=== PATIENT | female | born 1990 | race Caucasian/White ===

== ENCOUNTER 2023-05-25 23:23 | Emergency (ER) | payer MEDICAID, SELFPAY ==
[2023-05-25 23:25] VITALS: BP 123/81; PULSE 91; RESP 16; TEMP 36.1; BMI 25.5
[2023-05-25 23:29] VITALS: BP 123/81; PULSE 91; RESP 16; TEMP 36.1
--- NOTE | 2023-05-25 23:44 | EX.ED.SAOD ---
HPI History of Present Illness Chief Complaint: Substance Abuse Informant: patient Narrative Narrative: Patient from [place] presenting requesting detox from heroin. She states she has been using it was daily for about a year, she had a couple accidental overdoses within the past couple nights and states enough is enough. She also just found out by 5 positive home tests that she is because she missed her menstrual cycle. Her last 1 was in March at some point, making her anywhere between 5 and 8 weeks along by dates. She denies any abdominal pain, vaginal bleeding or discharge or vomiting. Her last use of heroin was around 24 hours ago, she states she feels poorly. She feels very anxious and shaky. [facility] Medical History (Updated 05/26/23 @ 00:13 by Patti King) Ectopic Endocarditis Hypertension Overdose of fentanyl Medical History no medical history no medical history Home Medications amitriptyline 50 mg tablet 50 mg PO QHS 05/26/23 [History Last Taken Unknown] apixaban 5 mg tablet (Eliquis) 5 mg PO BID #60 tabs 05/26/23 [Rx Last Taken Unknown] aspirin 81 mg chewable tablet 1 tab PO DAILY 05/26/23 [History Last Taken Unknown] buprenorphine 4 mg-naloxone 1 mg sublingual film 1 film buccal Q24H #2 ea 05/26/23 [Rx Last Taken Unknown] gabapentin 400 mg capsule 600 mg PO TID 05/26/23 [History Last Taken Unknown] melatonin 5 mg tablet 5 mg PO QHS 05/26/23 [History Last Taken Unknown] Allergy/AdvReac Type Severity Reaction Status Date / Time No Known Allergies Allergy Verified 05/25/23 23:30 Social History (Updated 05/25/23 @ 23:[address] Valente Hernandez MD) Smoking Status: Current every day smoker tobacco type: cigarettes substance use type: heroin and IV drugs ROS ROS ED Constitutional Constitutional ED: Denies chills or fever(s) Eyes Eyes: Denies change in vision or diplopia ENT ENT ED: Denies rhinorrhea or sore throat Cardiovascular Cardiovascular: Denies chest pain or palpitations Respiratory/Chest Respiratory/Chest: Denies cough or dyspnea Gastrointestinal Gastrointestinal: Denies abdominal pain, diarrhea, nausea or vomiting Genitourinary Genitourinary ED: Denies dysuria or hematuria Musculoskeletal Musculoskeletal: Denies back pain or neck pain Integumentary Denies abscess or rash Neurologic Neurologic: Denies headache(s), paresthesias or weakness Psychiatric Psychiatric: Denies anxiety or suicidal thoughts EXAM Physical Exam Const Vital Signs: 05/25/23 23:25 05/25/23 23:29 Temperature 97.0 F L 97.0 F L Temperature Source Temporal Temporal Pulse Rate 91 91 Respiratory Rate 16 16 Blood Pressure 123/81 H 123/81 H Blood Pressure Mean 95 95 Positive well nourished and well developed General Appearance ED: well developed and NAD HEENT Reports moist mucous membranes normocephalic and atraumatic Eyes PERRL and EOMs intact bilaterally Neck full ROM and supple Resp normal respiratory effort and clear to auscultation bilaterally Cardio regular rate, regular rhythm and no murmurs GI non-tender and non-distended Auscultation: normoactive bowel sounds Palpation: soft Back/Spine no CVA tenderness General Back: other FROM Extremity normal to inspection General Extremety ED: Negative for edema, pulses abnormal or tenderness General Extremity: Negative for edema or pulses abnormal Neuro oriented x3, CN's II-XII intact bilaterally and no sensory deficits noted Sensorium / Orientation: awake and alert Motor Exam: strength 5/5 throughout Skin no rashes or lesions noted and no wounds MDM MDM MDM Narrative Medical decision making narrative: Labs noted, urine is positive. Gave the patient tramadol 100 mg for her symptoms. Discussed with hospitalist, we do not admit detox patients here if they are . We kept the patient for several hours, making multiple phone calls from staff looking for a place we could transfer this patient, but it is Sunday night and we were not able to find anyone able to except the patient on the weekend. Most of them patient's Sunday-Sunday. There is a place at [facility] in [place] with [facility], they do not offer their services where the patient lives in [place] are close to there, and they would not accept the patient in transfer, saying that they have to come to the emergency department. Given patient appropriate information, and I am giving her a dose of Suboxone here as well as a prescription for 2 more days which will hopefully get her to there. She is comfortable with that plan and also asking for refill on her Eliquis which apparently she is on because of heart valve issue, she states she has been out of it for couple weeks and needs to be on it. Lab Data Attestation: I reviewed the patient's lab results. Labs: Laboratory Results - last 24 hr 05/26/23 05/26/23 05/26/23 00:02 00:07 00:15 WBC 7.1 RBC 4.05 L Hgb 11.1 L Hct 33.6 L MCV 83.0 MCH 27.4 MCHC 33.0 RDW Std Deviation 46.5 H RDW Coeff of Iam 15.9 H Plt Count 319 MPV 10.6 Immature Gran % (Auto) 0.700 Neut % (Auto) 41.5 L Lymph % (Auto) 42.1 H [place] % (Auto) 8.7 Eos % (Auto) 6.2 H Baso % (Auto) 0.8 Absolute Neuts (auto) 2.9 Absolute Lymphs (auto) 2.99 Nucleated RBC % 0 Sodium 140 Potassium 3.3 L Chloride 108 H Carbon Dioxide 25.0 Anion Gap 7 BUN 13 Creatinine 0.80 Estim Creat Clear Calc 74.77 Est GFR (MDRD) Af Amer 106 Est GFR (MDRD) Non-Af 88 BUN/Creatinine Ratio 16.3 Glucose 117 H Calcium 8.2 L Total Bilirubin 0.20 AST 18 ALT 27 Alkaline Phosphatase 96 Total Protein 6.4 Albumin 3.4 Globulin 3.0 Albumin/Globulin Ratio 1.1 Urine Test Positive H Urine Opiates Screen POSITIVE H Urine Methadone Screen NEGATIVE Ur Barbiturates Screen NEGATIVE Ur Phencyclidine Scrn NEGATIVE Ur Amphetamines Screen POSITIVE H MDMA (Ecstasy) Screen POSITIVE H U Benzodiazepines Scrn NEGATIVE Urine Cocaine Screen POSITIVE H U Cannabinoids Screen POSITIVE H Ur Drug Screen Comment Ethyl Alcohol < 3.0 Discharge Plan Triage Chief Complaint: Substance Abuse ED Provider: Valente Hernandez Dx/Rx/DC Orders Clinical Impression: Opiate dependence, Early stage of Instructions: ED Opioid Withdrawal Prescriptions: New buprenorphine-naloxone 4-1 mg film 1 film buccal Q24H Qty: 2 0RF Rx Instructions: place 1 strip/tab under (each) side of tongue Continued amitriptyline 50 mg tablet 50 mg PO QHS Patient Comments: take 1 tablet by mouth at bedtime gabapentin 400 mg capsule 600 mg PO TID Patient Comments: take 1 capsule by mouth three times a day melatonin 5 mg tablet 5 mg PO QHS Patient Comments: take 1 tablet by mouth at bedtime if needed aspirin 81 mg tablet,chewable 1 tab PO DAILY Patient Comments: chew and swallow 1 tablet by mouth once daily Eliquis 5 mg tablet 5 mg PO BID Qty: 60 0RF Primary Care Provider: MADELIN ROME Referrals: [facility] Doctor,Out of [Non-Staff] - Activity Restrictions/Additional Instructions: There is a program that is appropriate for women at [facility] in [place] if you can make it to their emergency department. They were unable to accept you in transfer. Disposition Disposition: Home, Self Care
[2023-05-26 00:21] LABS: Internal QC Validated? YES +Cl - CLEAR BKGD
[2023-05-26 00:22] LABS: Pregnancy, Urine Positive Negative
[2023-05-26] MEDS: traMADol 50 MG Tablet 100 MG PO (00:25)
[2023-05-26 00:35] LABS: Alcohol, Blood (Medical)-Serum < 3.0 mg/dL
[2023-05-26 00:36] LABS: Absolute Lymphocyte Count 2.99 X10^3/uL (0.83-4.51); Absolute Neutrophil Count 2.9 X10^3/uL (2.0-7.7); Basophil# 0.06 X10^3/uL; Basophil% 0.8 % (0-1); Eosinophil# 0.44 X10^3/uL; Eosinophils% 6.2 % (0-5); Hematocrit 33.6 % (37-47); Hemoglobin 11.1 g/dL (12.0-15.0); Lymphocyte # 2.99 X10^3/ul (0.83-4.51); Lymphocyte % 42.1 % (19-41); Mean Corpuscular Hgb 27.4 pg (27.0-32.0); Mean Platelet Vol. 10.6 fl (6.2-12.0); Monocyte# 0.62 X10^3/uL; Monocyte% 8.7 % (0-10); NRBC Flagged by Analyzer 0 % (0-5); Neutrophil # 2.94 X10^3/uL (2.7-7.7); Neutrophil % 41.5 % (47-70); Platelet Count 319 K/mm3 (150-450); RBC Distribution Width CV 15.9 % (11.6-14.6); RBC Distribution Width SD 46.5 fl (35.1-43.9); Red Blood Count 4.05 M/mm3 (4.2-5.4); White Blood Count 7.1 K/mm3 (4.4-11.0)
[2023-05-26 00:40] LABS: ALB/GLOB Ratio 1.1 RATIO (0.9-2.4); AST(SGOT) 18 U/L (15-37); Alanine Aminotransfer ALT/SGPT 27 U/L (13-56); Albumin, Serum 3.4 g/dL (3.2-5.0); Alkaline Phosphatase 96 U/L (45-117); Anion Gap 7 (5-15); BUN 13 mg/dL (7-18); BUN/Creat Ratio 16.3 RATIO (10-20); Calcium,Total 8.2 mg/dL (8.5-10.1); Chloride 108 mmol/L (98-107); EST Glomerular Filtration Rate 88 mL/min (>60); Est Glom Filt Rate - Afr Amer 106 mL/min (>60); Estimated Creatinine Clearance 74.77 ml/min; Glucose 117 mg/dL (74-106); Potassium 3.3 mmol/L (3.5-5.1); Protein, Total 6.4 g/dL (6.4-8.2); Sodium Level 140 mmol/L (136-145)
[2023-05-26 00:54] LABS: Amphetamine Urine VISTA POSITIVE (<1000 ng/mL); Barbiturate Urine VISTA NEGATIVE (< 200 ng/mL); Benzodiazepine Urine VISTA NEGATIVE (< 200 ng/mL); Cocaine Urine VISTA POSITIVE (< 300 ng/mL); Ecstacy Urine VISTA POSITIVE (< 500 ng/mL); Methadone Urine VISTA NEGATIVE (< 300 ng/mL); PCP Urine VISTA NEGATIVE (< 25 ng/mL); THC Urine VISTA POSITIVE (< 50 ng/mL); Vista UDS pH Range 5
--- NOTE | 2023-05-26 01:30 | ED.RN ---
phone call to 180 patient navigator for assistance with placement. message left to return phone call
--- NOTE | 2023-05-26 02:57 | SUR.HOLD ---
spoke to [facility] they do not do detox spoke to [facility] they do not do detox
[2023-05-26] MEDS: Buprenorphine HCl 2 MG TAB.SUBL 4 MG SL (04:34)
[2023-05-26 04:38] VITALS: BP 126/78; PULSE 70; RESP 16; O2SAT 100
[2023-05-26 04:39] VITALS: PULSE 70; RESP 16
== END 2023-05-26 04:50 | disposition home or self-care (01) ==
PROVIDERS: Emergency Provider Emergency Medicine; Visit Provider Emergency Medicine
DX: O99.321 Drug use complicating pregnancy, first trimester (principal); F11.20 Opioid dependence, uncomplicated; F17.210 Nicotine dependence, cigarettes, uncomplicated; O99.331 Smoking (tobacco) complicating pregnancy, first trimester; Z79.01 Long term (current) use of anticoagulants; Z79.82 Long term (current) use of aspirin; Z79.899 Other long term (current) drug therapy; Z3A.01 Less than 8 weeks gestation of pregnancy
CPT/HCPCS: 36415; 80053; 80307; 81025; 82077; 85025; 99283

== ENCOUNTER 2025-03-14 22:43 | Observation (INO) | payer MEDICAID, SELFPAY ==
[2025-03-14 22:44] VITALS: BP 125/88; PULSE 95; RESP 18; TEMP 36.2; O2SAT 97; BMI 21.7
--- NOTE | 2025-03-14 22:56 | EX.ED.SAOD ---
HPI History of Present Illness Chief Complaint: Substance Abuse Informant: patient Onset/Context/Timing Onset: Today Context: Gradual Onset Timing: Continuous Worsened by: Nothing Relieved by: Nothing Associated Symptoms Associated Symptoms: Positive for palpatations and no; Negative for vomiting*, diarrhea*, fever*, seizure, tremor, suicidal ideation or homicidal ideation Narrative Narrative: Patient presents requesting detox from heroin, fentanyl and opiates. Patient states she normally snorts 3 g/day. Patient states her last use was approximately 5 hours prior to arrival. Patient denies any suicidal homicidal ideations. Patient states she just does not feel well. Patient states she feels like her heart is racing and beating out of her chest. Patient denies any chest pain. Patient denies any nausea, vomiting, or diarrhea. Patient denies any chance of . [facility] Medical History Ectopic Overdose of fentanyl Hypertension Endocarditis Home Medications ?Medication ?Instructions ?Recorded ?Last Taken ?Type amitriptyline 50 mg tablet 50 mg PO QHS 05/26/23 Unknown History apixaban 5 mg tablet (Eliquis) 5 mg PO BID #60 tabs 05/26/23 Unknown Rx aspirin 81 mg chewable tablet 1 tab PO DAILY 05/26/23 Unknown History buprenorphine 4 mg-naloxone 1 mg 1 film buccal Q24H #2 ea 05/26/23 Unknown Rx sublingual film gabapentin 400 mg capsule 600 mg PO TID 05/26/23 Unknown History melatonin 5 mg tablet 5 mg PO QHS 05/26/23 Unknown History Allergy/AdvReac Type Severity Reaction Status Date / Time No Known Allergies Allergy Verified 03/14/25 22:44 Surgical History no surgical history no surgical history Social History Smoking Status: Current every day smoker tobacco type: cigarettes substance use type: heroin and IV drugs ROS ROS ED Constitutional Constitutional ED: Reports chills and subjective; Denies fever(s) Eyes Eyes: Denies blurry vision or change in vision ENT ENT ED: Denies rhinorrhea or sore throat Cardiovascular Cardiovascular: Reports palpitations; Denies chest pain Respiratory/Chest Respiratory/Chest: Denies cough or dyspnea Gastrointestinal Gastrointestinal: Denies nausea or vomiting Genitourinary Genitourinary ED: Denies dysuria or hematuria Musculoskeletal Musculoskeletal: Reports myalgias; Denies back pain or neck pain Integumentary Denies abscess or rash Neurologic Neurologic: Reports headache(s); Denies weakness Allergic/Immunologic Allergic/Immunologic ED: Denies mouth swelling or urticaria EXAM Physical Exam Const Vital Signs: 03/14/25 22:44 Temperature 97.1 F L Temperature Source Temporal Pulse Rate 95 Respiratory Rate 18 Blood Pressure 125/88 H Blood Pressure Mean 100 Pulse Ox 97 Oxygen Delivery Method Room Air Positive well nourished and well developed General Appearance ED: well developed and NAD HEENT Reports moist mucous membranes Neck supple and no JVD Resp normal respiratory effort and clear to auscultation bilaterally Cardio regular rate and regular rhythm GI soft to palpation, non-tender and non-distended Neuro oriented x3, CN's II-XII intact bilaterally and no sensory deficits noted [place] Coma Scale: document GCS findings Spontaneous Obeys Commands Oriented 15 Sensorium / Orientation: alert Motor Exam: strength 5/5 throughout Psych mental status grossly normal Mood & Affect: depressed and tearful MDM MDM MDM Narrative Medical decision making narrative: Medical screening labs will be obtained. CBC will be obtained to assess for leukocytosis and anemia. Basic metabolic profile will be obtained to assess for electrolyte abnormality and renal function. Serum hCG will be obtained to assess for . Serum alcohol level will be obtained to assess for alcohol intoxication. Urine drug screen will be obtained to assess for substance abuse. Lab Data Attestation: I reviewed the patient's lab results. Lab results narrative: CBC was reviewed and was within normal limits. Labs: Laboratory Results - last 24 hr 03/14/25 23:12 WBC 6.9 RBC 4.35 Hgb 13.2 Hct 38.9 MCV 89.4 MCH 30.3 MCHC 33.9 RDW Std Deviation 40.6 RDW Coeff of Iam 12.6 Plt Count 234 MPV 10.7 Immature Gran % (Auto) 0.300 Neut % (Auto) 64.9 Lymph % (Auto) 25.4 [place] % (Auto) 5.7 Eos % (Auto) 2.8 Baso % (Auto) 0.9 Absolute Neuts (auto) 4.5 Absolute Lymphs (auto) 1.74 Nucleated RBC % 0 Management Discussion w/another healthcare provider: Hospitalist (Dr. Quiroz) Treatment and Re-Evaluation Narrative: Case was discussed with the hospitalist for admission. He will admit the patient to his service. Patient understood and was agreeable with plan. All questions were answered. Discharge Plan Triage Chief Complaint: Substance Abuse ED Provider: Eric Jay Dx/Rx/DC Orders Clinical Impression: Opiate withdrawal, Substance abuse, Desire for detoxification Prescriptions: No Action amitriptyline 50 mg tablet 50 mg PO QHS Patient Comments: take 1 tablet by mouth at bedtime gabapentin 400 mg capsule 600 mg PO TID Patient Comments: take 1 capsule by mouth three times a day melatonin 5 mg tablet 5 mg PO QHS Patient Comments: take 1 tablet by mouth at bedtime if needed aspirin 81 mg tablet,chewable 1 tab PO DAILY Patient Comments: chew and swallow 1 tablet by mouth once daily buprenorphine-naloxone 4-1 mg film 1 film buccal Q24H Qty: 2 0RF Rx Instructions: place 1 strip/tab under (each) side of tongue Eliquis 5 mg tablet 5 mg PO BID Qty: 60 0RF Primary Care Provider: MADELIN ROME Referrals: MADELIN ROME [Other] Print Language: Lao Disposition Disposition: Acute Care Hospital [facility]
[2025-03-14 23:20] LABS: Absolute Lymphocyte Count 1.74 X10^3/uL (0.83-4.51); Absolute Neutrophil Count 4.5 X10^3/uL (2.0-7.7); Basophil# 0.06 X10^3/uL; Basophil% 0.9 % (0-1); Eosinophil# 0.19 X10^3/uL; Eosinophils% 2.8 % (0-5); Hematocrit 38.9 % (37-47); Hemoglobin 13.2 g/dL (12.0-15.0); Lymphocyte # 1.74 X10^3/ul (0.83-4.51); Lymphocyte % 25.4 % (19-41); Mean Corp Hgb Conc 33.9 g/dL (32-36); Mean Corpuscular Hgb 30.3 pg (27.0-32.0); Mean Corpuscular Volume 89.4 fL (81-99); Mean Platelet Vol. 10.7 fl (6.2-12.0); Monocyte# 0.39 X10^3/uL; Monocyte% 5.7 % (0-10); NRBC Flagged by Analyzer 0 % (0-5); Neutrophil # 4.46 X10^3/uL (2.7-7.7); Neutrophil % 64.9 % (47-70); Platelet Count 234 K/mm3 (150-450); RBC Distribution Width CV 12.6 % (11.6-14.6); RBC Distribution Width SD 40.6 fl (35.1-43.9); Red Blood Count 4.35 M/mm3 (4.2-5.4); White Blood Count 6.9 K/mm3 (4.4-11.0)
[2025-03-14 23:37] LABS: Anion Gap 11 (5-15); BUN 14 mg/dL (4-19); BUN/Creat Ratio 15.4 RATIO (10-20); Calcium,Total 8.9 mg/dL (7.6-11.0); Carbon Dioxide 23.1 mmol/L (21.0-32.0); Chloride 105 mmol/L (98-108); Creatinine, Serum 0.89 mg/dL (0.70-1.20); EST Glomerular Filtration Rate 86 (>60); Estimated Creatinine Clearance 65.94 ml/min (50-250); Glucose 120 mg/dL (70-99); Potassium 3.6 mmol/L (3.3-5.1); Sodium Level 139 mmol/L (133-145)
--- NOTE | 2025-03-14 23:45 | PCM.HP.STD ---
HPI - General General Date of Admission: 03/14/25 Date of Service: 03/14/25 Chief Complaint: Opioid detoxification HPI Narrative AUSTIN VILLASENOR, is a 35 F with history of polysubstance abuse, nicotine dependence, prior history of endocarditis with pulmonary embolism who presents to the ED with concerns for inpatient opioid detoxification. She has a longstanding history of opioid use [any and all opioids that she can get] mostly snorting but used to use IV drugs about 6 months back when she developed endocarditis. At the time she was also prescribed Eliquis for? Pulmonary embolism but is noncompliant with her medications. Smokes about 2 packs of cigarettes daily and uses marijuana frequently. No alcohol use, takes Xanax if she can. Occasional Percocet use. Not on any medications, has tried de addiction in the past At the time of presentation in the ED blood pressure 125/88, temp 97.1, oxygen saturation 97% WBC 6.9, hemoglobin 13.2, platelet 284, sodium 139, potassium 3.5, chloride 105, BUN 14, creatinine 0.8. [facility] Medical History Ectopic Overdose of fentanyl Hypertension Endocarditis Home Medications ?Medication ?Instructions ?Recorded ?Last Taken ?Type amitriptyline 50 mg tablet 50 mg PO QHS 05/26/23 Unknown History apixaban 5 mg tablet (Eliquis) 5 mg PO BID #60 tabs 05/26/23 Unknown Rx aspirin 81 mg chewable tablet 1 tab PO DAILY 05/26/23 Unknown History buprenorphine 4 mg-naloxone 1 mg 1 film buccal Q24H #2 ea 05/26/23 Unknown Rx sublingual film gabapentin 400 mg capsule 600 mg PO TID 05/26/23 Unknown History melatonin 5 mg tablet 5 mg PO QHS 05/26/23 Unknown History Allergy/AdvReac Type Severity Reaction Status Date / Time No Known Allergies Allergy Verified 03/14/25 22:44 Surgical History no surgical history Social History Smoking Status: Current every day smoker tobacco type: cigarettes substance use type: heroin and IV drugs ROS Review of Systems ROS Unobtainable: Denies due to encephalopathy, due to endotracheal tube, due to mental condition, due to mental status or other Constitutional Constitutional: Reports fatigue and malaise Eyes Eyes: Denies blurry vision, change in eye color, change in vision, discharge from eye(s), double vision, erythema, eye pain, loss of vision or other ENT HEENT: Denies abnormal hearing, dysphagia, ear pain, epistaxis, headache(s), hearing loss, nasal congestion, nasal discharge, post nasal drip, sinus pressure, sore throat or other Cardiovascular Cardiovascular: Denies chest pain, claudication, dyspnea on exertion, edema, lightheadedness, orthopnea, palpitations, paroxysmal nocturnal dyspnea, rapid heart rate, syncope or other Respiratory/Chest Respiratory/Chest: Denies cough, dyspnea, excessive phlegm production, hemoptysis, productive cough, shortness of breath at rest, shortness of breath with exertion, wheezing or other Gastrointestinal Gastrointestinal: Denies abdominal pain, coffee ground emesis, constipation, diarrhea, dyspepsia, hematemesis, hematochezia, loose stools, melena, nausea, vomiting or other Genitourinary Genitourinary: Denies burning urination, difficulty urinating, dysuria, hematuria, nocturia, urinary frequency, urinary hesitancy, urinary incontinence, urinary urgency or other Musculoskeletal Musculoskeletal: Denies arthralgias, back pain, joint pain, joint stiffness, joint swelling, myalgias, neck pain or other Neurologic Neurologic: Denies abnormal gait, abnormal speech, confusion, disequilibrium, dizziness, focal weakness, headache(s), numbness, paresthesias, seizure-like activity, seizures, syncope, tingling, tremor(s) or other Psychiatric Psychiatric: Denies anxiety, depression, homicidal ideation, suicidal ideation or other Endocrine Endocrinology: Denies change in body appearance, cold intolerance, excessive sweating, heat intolerance, polydipsia, polyuria or other Hematologic/Lymphatic Hematologic/Lymphatic: Denies anemia, easy bleeding, easy bruising, lymphadenopathy or other Allergic/Immunologic Allergic/Immunologic: Denies rhinitis, hives, eczemia, asthma or other Vital Signs Vital Signs Vital Signs: 03/14/25 22:44 Temperature 97.1 F L Temperature Source Temporal Pulse Rate 95 Respiratory Rate 18 Blood Pressure 125/88 H Blood Pressure Mean 100 Pulse Ox 97 Oxygen Delivery Method Room Air Weight Weight: 115 lb Body Mass Index (BMI) 21.7 Physical Exam Const alert and oriented x3 Constitutional Narrative: Anxious HEENT normocephalic and head/scalp atraumatic Eyes PERRL and EOMs intact bilaterally Neck no lymphadenopathy and supple Resp normal respiratory effort, no retractions and no use of accessory muscles Cardio regular rate, regular rhythm, S1 normal heart sound and S2 normal heart sound GI normal to inspection, nondistended, normoactive bowel sounds Extremity normal to inspection and full ROM Neuro oriented x3 Psych affect normal Results Medical Records Data Attestation: I reviewed the patient's medical records Lab / Micro Data Attestation: I reviewed the patient's lab results. 03/14/25 23:12 03/14/25 23:12 Labs: Laboratory Results - last 24 hr 03/14/25 23:12: WBC 6.9, RBC 4.35, Hgb 13.2, Hct 38.9, MCV 89.4, MCH 30.3, MCHC 33.9, RDW Std Deviation 40.6, RDW Coeff of Iam 12.6, Plt Count 234, MPV 10.7, Immature Gran % (Auto) 0.300, Neut % (Auto) 64.9, Lymph % (Auto) 25.4, [place] % (Auto) 5.7, Eos % (Auto) 2.8, Baso % (Auto) 0.9, Absolute Neuts (auto) 4.5, Absolute Lymphs (auto) 1.74, Nucleated RBC % 0, Sodium 139, Potassium 3.6, Chloride 105, Carbon Dioxide 23.1, Anion Gap 11, BUN 14, Creatinine 0.89, Estim Creat Clear Calc 65.94, Est GFR (MDRD) Non-Af 86, BUN/Creatinine Ratio 15.4, Glucose 120 H, Calcium 8.9 Assessment & Plan Assessment/Plan (1) Desire for detoxification: PLAN: Plan 35-year-old female with history of opioid addiction, nicotine dependence, marijuana use presents to the hospital for inpatient detoxification #Opiate dependence - Started on buprenorphine based opioid stabilization - As needed clonidine, dicyclomine, gabapentin, hydroxyzine, loperamide as needed - Monitor based on the COWS - HCV, HIV, hepatitis B levels - Admit to [facility] 3 #Prior history of infective endocarditis, pulmonary embolism - Continue Eliquis for now - Echocardiogram to reassess for any vegetation - Routine CTA to assess for thrombus burden - Close monitoring of saturation #DVT risk - Continue Eliquis for now Charges/Coding Visit Charges Inpatient E&M: 80889 Init Hosp L2
[2025-03-14 23:47] LABS: Internal QC Validated? YES +Cl - CLEAR BKGD; Pregnancy, Serum, hCG Quali. NEGATIVE Negative
[2025-03-14 23:53] LABS: Alcohol, Blood (Medical)-Serum < 10.1 mg/dL (<=10.0)
[2025-03-15 00:14] VITALS: BP 100/67; PULSE 78; RESP 14; TEMP 36.6; O2SAT 95
[2025-03-15 01:45] VITALS: BP 107/62; PULSE 72; RESP 14; TEMP 36.8; O2SAT 98
[2025-03-15 01:46] VITALS: BMI 19.8
[2025-03-15 02:45] VITALS: O2SAT 94
[2025-03-15 05:36] LABS: Absolute Lymphocyte Count 2.68 X10^3/uL (0.83-4.51); Absolute Neutrophil Count 2.6 X10^3/uL (2.0-7.7); Basophil# 0.05 X10^3/uL; Basophil% 0.8 % (0-1); Eosinophil# 0.44 X10^3/uL; Eosinophils% 7.1 % (0-5); Hematocrit 40.9 % (37-47); Hemoglobin 13.8 g/dL (12.0-15.0); Lymphocyte # 2.68 X10^3/ul (0.83-4.51); Mean Corp Hgb Conc 33.7 g/dL (32-36); Mean Corpuscular Hgb 30.4 pg (27.0-32.0); Mean Corpuscular Volume 90.1 fL (81-99); Mean Platelet Vol. 10.8 fl (6.2-12.0); Monocyte# 0.44 X10^3/uL; Monocyte% 7.1 % (0-10); NRBC Flagged by Analyzer 0 % (0-5); Neutrophil % 41.7 % (47-70); Platelet Count 249 K/mm3 (150-450); RBC Distribution Width CV 12.7 % (11.6-14.6); RBC Distribution Width SD 41.8 fl (35.1-43.9); Red Blood Count 4.54 M/mm3 (4.2-5.4); White Blood Count 6.2 K/mm3 (4.4-11.0)
[2025-03-15 05:45] VITALS: BP 125/95; PULSE 76; RESP 12; TEMP 36.7; O2SAT 97
[2025-03-15 05:48] LABS: International Normalized Ratio 1.2
[2025-03-15] MEDS: Methocarbamol 750 MG Tablet PO (06:46)
[2025-03-15] MEDS: Buprenorphine HCl 2 MG TAB.SUBL 4 MG SL (06:46)
[2025-03-15] MEDS: hydrOXYzine PAM 25 MG Capsule 50 MG PO (06:46)
[2025-03-15 07:10] LABS: ALB/GLOB Ratio 1.7 RATIO (0.9-2.4); AST(SGOT) 24 U/L (<=31); Alanine Aminotransfer ALT/SGPT 14 U/L (<=34); Alkaline Phosphatase 103 U/L (35-104); Anion Gap 12 (5-15); BUN 12 mg/dL (4-19); BUN/Creat Ratio 15.7 RATIO (10-20); Bilirubin, Direct 0.13 mg/dL (0.00-0.30); Calcium,Total 8.8 mg/dL (7.6-11.0); Chloride 107 mmol/L (98-108); Creatinine, Serum 0.75 mg/dL (0.70-1.20); EST Glomerular Filtration Rate 105 (>60); Estimated Creatinine Clearance 77.82 ml/min (50-250); Globulin 2.3 g/dL (2.2-4.2); Glucose 84 mg/dL (70-99); Magnesium 1.8 mg/dL (1.5-2.2); Phosphorus 4.3 mg/dL (2.7-4.5); Potassium 3.6 mmol/L (3.3-5.1); Protein, Total 6.3 g/dL (5.9-8.4); Sodium Level 141 mmol/L (133-145); Total Bilirubin 0.31 mg/dL (0.00-1.30)
[2025-03-15 07:59] LABS: HIV Nonreactive (Nonreactive); Hepatitis B Surface Antigen Nonreactive (Nonreactive); Hepatitis C Antibody Nonreactive (Nonreactive)
[2025-03-15 09:40] VITALS: BP 115/92; PULSE 73; RESP 15; TEMP 36.6; O2SAT 98
[2025-03-15] MEDS: cloNIDine HCl 0.1 MG Tablet PO (12:00)
[2025-03-15] MEDS: Gabapentin 300 MG Capsule PO (12:00)
[2025-03-15] MEDS: APIXABAN 5 MG TABLET PO (12:00)
[2025-03-15] MEDS: Ondansetron 8 MG Tablet PO (12:00)
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
--- NOTE | 2025-03-15 12:48 | DS.PCM_ITS ---
Providers Date of Admission: 03/14/25 Date of Discharge: 03/15/25 Primary Care Physician: MADELIN ROME Reason For Visit: OPIOID ABUSE Diagnosis Discharge Diagnosis (1) Opiate withdrawal: Status: Acute Code(s): F11.93 - Opioid use, unspecified with withdrawal (2) Substance abuse: Status: Acute Code(s): F19.10 - Other psychoactive substance abuse, uncomplicated Plan #Acute opioid withdrawal * Says she usually uses about 2 g of fentanyl daily and usually snorts it. She has been smoking for about 6 months since she got endocarditis. * On opioid withdrawal protocol with buprenorphine. Adjunctive meds for symptomatic relief. Monitor COWS score. #History of endocarditis * Patient tells me she thinks she has endocarditis again. However she has no fever and no elevated white cell count. 2D echo was ordered on admission. Will get 2D echo tomorrow and we will see what it shows. #History of PE: On Eliquis DVT prophylaxis: Already on Eliquis. Medications at Discharge Home Medications amitriptyline 50 mg tablet 50 mg PO QHS sleep 05/26/23 apixaban 5 mg tablet (Eliquis) 5 mg PO BID #60 tabs 05/26/23 aspirin 81 mg chewable tablet 1 tab PO DAILY heart health 05/26/23 gabapentin 300 mg capsule 300 mg PO TID back pain 03/15/25 Hospital Course Operations None Procedures None Summary of Care Provided Minutes Spent on Discharge: 38 Hospital Course: Patient is a 35-year-old female with past medical history as outlined including a history of opioid use disorder and request for detox. She used to use IV drugs but says she had switched to snorting fentanyl since her endocarditis about 6 months prior to admission. She was also on Eliquis for history of pulmonary embolism but admitted to be noncompliant with her medication. She also smoked 2 packs of cigarettes daily and also use marijuana but denied using any alcohol. Review of systems otherwise negative. She was admitted to the manage for acute opioid withdrawal and started on buprenorphine withdrawal protocol. Patient also says she felt like she had endocarditis though she did not have any murmur during review. On admission a repeat 2D echo was therefore ordered. Patient was initially tolerating the detox but despite counseling to stay to complete the detox process she signed out AGAINST MEDICAL ADVICE on 03/15/2025. Patient was seen and examined. On 03/15/2025. She was anxious and jittery and complained of withdrawal symptoms such as cramps and tremors. She denied any nausea or vomiting and review of systems was otherwise negative. Physical Exam Const alert and oriented x3 Constitutional Narrative: in mild distress due to withdrawal symptoms General Appearance: cooperative Orientation / Consciousness: awake Exam Limitations: no limitations HEENT normocephalic, head/scalp atraumatic, hearing grossly normal bilaterally, moist oral mucous membranes and oropharynx normal HEENT Narrative: mild left periorbital swelling which she says is due to a recent RTA Mouth: oral and palatal mucosa normal Eyes PERRL and EOMs intact bilaterally Neck no lymphadenopathy and supple Lymph Lymphatic: no lymphadenopathy noted and no lymphedema noted Resp normal respiratory effort, normal air movement, no retractions, no use of accessory muscles and clear to auscultation bilaterally Cardio regular rate, regular rhythm, S1 normal heart sound, S2 normal heart sound and no murmurs GI normal to inspection, nondistended, normoactive bowel sounds, soft to palpation, non-tender and non-distended Extremity normal to inspection, full ROM, normal capillary refill, no clubbing, cyanosis or edema and no calf tenderness General Extremity: no tenderness to palpation of joints or extremities Skin General Skin Exam: no breakdown Neuro oriented x3, CN's II-XII intact bilaterally, moves all extremities, no focal motor deficits and no sensory deficits noted Sensorium / Orientation: awake and alert Motor Exam: strength 5/5 throughout Psych affect normal Psych Narrative: anxious, agitated Weight / BMI Weight Weight: 104 lb 12.8 oz Body Mass Index (BMI) 19.8 ABG / Lab / Microbiology Data 03/15/25 04:42 03/15/25 04:42 Laboratory: Laboratory Results - last 24 hr 03/14/25 23:12: WBC 6.9, RBC 4.35, Hgb 13.2, Hct 38.9, MCV 89.4, MCH 30.3, MCHC 33.9, RDW Std Deviation 40.6, RDW Coeff of Iam 12.6, Plt Count 234, MPV 10.7, Immature Gran % (Auto) 0.300, Neut % (Auto) 64.9, Lymph % (Auto) 25.4, [place] % (Auto) 5.7, Eos % (Auto) 2.8, Baso % (Auto) 0.9, Absolute Neuts (auto) 4.5, Absolute Lymphs (auto) 1.74, Nucleated RBC % 0, Sodium 139, Potassium 3.6, Chloride 105, Carbon Dioxide 23.1, Anion Gap 11, BUN 14, Creatinine 0.89, Estim Creat Clear Calc 65.94, Est GFR (MDRD) Non-Af 86, BUN/Creatinine Ratio 15.4, G lucose 120 H, Calcium 8.9, Serum , Qual NEGATIVE, Ethyl Alcohol < 10.1 03/15/25 04:42: WBC 6.2, RBC 4.54, Hgb 13.8, Hct 40.9, MCV 90.1, MCH 30.4, MCHC 33.7, RDW Std Deviation 41.8, RDW Coeff of Iam 12.7, Plt Count 249, MPV 10.8, Immature Gran % (Auto) 0.300, Neut % (Auto) 41.7 L, Lymph % (Auto) 43.0 H, [place] % (Auto) 7.1, Eos % (Auto) 7.1 H, Baso % (Auto) 0.8, Absolute Neuts (auto) 2.6, Absolute Lymphs (auto) 2.68, Nucleated RBC % 0, PT 15.0 H, INR 1.2, Sodium 141, Potassium 3.6, Chloride 107, Carbon Dioxide 23.0, Anion Gap 12, BUN 12, Creatinine 0.75, Estim Creat Clear Calc 77.82, Est GFR (MDRD) Non-Af 105, BUN/Creatinine Ratio 15.7, Glucose 84, Calcium 8.8, Phosphorus 4.3, Magnesium 1.8, Total Bilirubin 0.31, Direct Bilirubin 0.13, AST 24, ALT 14, Alkaline Phosphatase 103, Total Protein 6.3, Albumin 4.0, Globulin 2.3, Albumin/Globulin Ratio 1.7, TSH 1.340, Hep Bs Antigen Nonreactive, Hepatitis C Antibody Nonreactive, HIV 1&2 Antibody Nonreactive D/C Instructions Discharge Diet: Low fat / Low cholesterol Discharge Activity: Return to Normal Activity Weight Bearing Status: Weight bearing as tolerated DC O2, CPAP, BIPAP Needs Home O2 Discharge instructions: No DC home with Oxygen: No Meaningful Use Info Meaningful Use Meaningful Use Diagnoses (Choose all that apply): None applicable Ischemic Stroke Statin Dosing Therapy Reference: STATIN DOSE THERAPY REFERENCE: * Patients > 75 years receive moderate or high dose statin therapy. * Patients 75 years or YOUNGER should receive HIGH intensity statin dose unless contraindicated. You will be required to document reason for non-treatment if statin daily dose does not meet guidelines. HIGH DOSE STATIN THERAPY DAILY Atorvastatin > than or = to 40 mg Rosuvastatin > than or = to 20 mg Amlodipine + Atorvastatin > than or = to 2.5/40 mg Ezetimibe + Simvastatin 10/80 mg Simvastatin 80mg Discharge Plan Admission Admit Date/Time: 03/14/25 23:37 Primary Reason for Your Visit: acute opioid withdrawal Attending Provider: Meche Blanca Primary Care Provider: MADELIN ROME Consulting Providers: Rosalie Quiroz Instructions Patient Instructions: ED Opioid Withdrawal Discharge Orders/Prescriptions Prescriptions: Continued amitriptyline 50 mg tablet 50 mg PO QHS Patient Comments: take 1 tablet by mouth at bedtime aspirin 81 mg tablet,chewable 1 tab PO DAILY Patient Comments: chew and swallow 1 tablet by mouth once daily Eliquis 5 mg tablet 5 mg PO BID Qty: 60 0RF gabapentin 300 mg capsule 300 mg PO TID Referrals / Follow Up: MADELIN ROME [Other] - Within 2 Weeks MADELIN ROME [Other] Disposition Disposition (needs filled in before D/C Order can be placed): Against Medical Advice Charges/Coding Visit Charges Inpatient E&M: 62482 Disch Hosp >30min
--- NOTE | 2025-03-15 12:56 | ADDICTION ---
Met w/ patient to discuss RAMP program. Collected information to complete assessment. Discussed Tx options with client and provided resources. Client reported that she was miserable and wanted to go home. Clinician provided unconditional positive regard and utilized [place] to assist client in developing discrepancy.
== END 2025-03-15 13:14 | disposition left against medical advice (07) ==
LOC: ED 23:35 → MS3 03-15 07:11
PROVIDERS: Admitting Provider Internal Medicine; Emergency Provider Emergency Medicine; Visit Provider Student in an Organized Health Care Education/Training Program
DX: F11.23 Opioid dependence with withdrawal (principal); Z79.01 Long term (current) use of anticoagulants; I10 Essential (primary) hypertension; F17.210 Nicotine dependence, cigarettes, uncomplicated; Z79.82 Long term (current) use of aspirin; F12.90 Cannabis use, unspecified, uncomplicated; Z79.891 Long term (current) use of opiate analgesic; Z86.711 Personal history of pulmonary embolism
CPT/HCPCS: 36415; 80048; 80053; 82077; 82248; 83735; 84100; 84443; 84703; 85025; 85610; 86703; 86803; 87340; 97802; 99221; 99252; 99283; G0378; G0463